=== PATIENT | male | born 2000 | race Caucasian/White ===

== ENCOUNTER 2022-04-23 19:45 | Emergency (ER) | payer BC, SELFPAY ==
[2022-04-23 19:46] VITALS: BP 133/102; PULSE 103; RESP 16; TEMP 36.8; O2SAT 98; BMI 24.3
--- NOTE | 2022-04-23 20:09 | EDS_ITS ---
HPI History of Present Illness Chief Complaint: Nausea/Vomiting Detail of Chief Complaint: Nausea and vomiting x3 days Informant: patient Narrative Narrative: Patient presents to the emergency department with complaint of vomiting and diarrhea that started 3 days ago. The vomiting has improved over time and the diarrhea was severe yesterday up to every 2 hours but he is only had 2 bouts today. Patient has had headache and started developing neck stiffness today so he got on telehealth and was referred to urgent care and urgent care referred him to the emergency department for concern for meningitis. Patient is at the [facility] and he has been around sick individuals. Initially patient thought maybe he had food poisoning. Patient has no medical history otherwise. PFSH PFSH Home Medications NK 04/23/22 [History Last Taken Unknown] Allergy/AdvReac Type Severity Reaction Status Date / Time No Known Allergies Allergy Verified 04/23/22 19:52 Surgical History (Updated 04/23/22 @ 19:53 by Nicole Llanos) H/O sinus surgery History of mandibular surgery Social History Smoking Status: Never smoker ROS ROS ED Review of Systems ROS Unobtainable: other Constitutional Constitutional ED: Reports lethargy; Denies chills, fever(s), sweats or weight loss Eyes Eyes: Denies blurry vision, change in vision or diplopia ENT ENT ED: Denies rhinorrhea or sore throat Cardiovascular Cardiovascular: Reports chest pain and racing heartbeat; Denies orthopnea Respiratory/Chest Respiratory/Chest: Reports dyspnea and dyspnea on exertion; Denies cough, orthopnea or sputum Gastrointestinal Gastrointestinal: Reports diarrhea, nausea and vomiting; Denies abdominal pain Genitourinary Genitourinary ED: Denies dysuria, hematuria or urinary frequency Musculoskeletal Musculoskeletal: Denies arthralgias, back pain, myalgias or neck pain Integumentary Denies abscess, Abrasions or rash Neurologic Neurologic: Reports headache(s); Denies weakness Psychiatric Psychiatric: Denies anxiety, depression or suicidal thoughts Endocrine Endocrinology: Denies polydipsia, polyphagia or polyuria Hematologic/Lymphatic Hematologic/Lymphatic: Denies easy bleeding, easy bruising or lymphadenopathy Allergic/Immunologic Allergic/Immunologic ED: Denies mouth swelling, tongue swelling or urticaria EXAM Physical Exam Const Vital Signs: 04/23/22 19:46 04/23/22 19:55 04/23/22 21:18 Temperature 98.2 F Temperature Source Temporal Pulse Rate 103 H 83 Respiratory Rate 16 Respiratory Effort Normal Non-Labored Respiratory Pattern Normal Blood Pressure 133/102 H 135/75 H Blood Pressure Mean 112 95 Pulse Ox 98 Oxygen Delivery Method Room Air Positive well nourished and well developed General Appearance ED: well developed and NAD HEENT Reports TM's clear and moist mucous membranes normocephalic and atraumatic; Negative for trauma or tenderness Tympanic Membrane ED: Yes TM's clear Eyes PERRL and EOMs intact bilaterally General Eye ED: Negative for pale conjunctiva or scleral icterus Neck no lymphadenopathy, supple and no JVD General: Negative for tenderness Chest Wall inspection of chest normal and palpation of chest normal Chest: Negative for tenderness Resp normal respiratory effort and clear to auscultation bilaterally Effort and Inspection: Negative for respiratory distress or pain with movement Auscultation: Negative for rhonchi, wheezes or diminished lung sounds Cardio regular rate, regular rhythm, S1 normal heart sound, S2 normal heart sound and no murmurs Peripheral Pulses: pulses 2+ throughout GI normal to inspection, nondistended, normoactive bowel sounds, soft to palpation, non-tender, non-distended and no masses Back/Spine no CVA tenderness and no thoracic nor lumbar tenderness Extremity normal to inspection General Extremety ED: Negative for edema General Extremity: Negative for edema Neuro oriented x3, CN's II-XII intact bilaterally, no sensory deficits noted and gait normal Neuro Narrative: Patient had negative Kernig's and negative Brudzinski's. There is no nuchal rigidity on exam. Sensorium / Orientation: awake, alert, oriented to person, oriented to place and oriented to time Motor Exam: strength 5/5 throughout and strength abnormal Psych mental status grossly normal Skin no rashes or lesions noted and no wounds MDM MDM MDM Narrative Medical decision making narrative: IV established arrival. Patient was given liter mostly of fluid bolus. Patient was given Toradol 30 mg IV. Patient symptomatically felt much improved and states now he can move his neck without difficulty. Patient lab work-up was essentially normal with a normal white count of 6.2 hemoglobin of 15 and no abnormalities noted in his BMP. Patient will be discharged to home. I suspect he has a viral gastroenteritis. Patient advised to use ibuprofen for discomfort. He states he has not vomited in 2 days and does not want thing for nausea. Patient advised to follow-up with primary care physician within next 3 to 5 days. Advised to return if persistent vomiting, diarrhea, dehydration, severe headache, or condition should worsen anyway. Patient is comfortable with plan. Clinically he does not have meningitis. I do not feel a spinal tap is indicated. Lab Data Attestation: I reviewed the patient's lab results. Labs: Laboratory Results - last 24 hr 04/23/22 04/23/22 20:21 20:21 WBC 6.2 RBC 4.85 Hgb 14.8 Hct 42.4 MCV 87.4 MCH 30.5 MCHC 34.9 RDW Std Deviation 37.4 RDW Coeff of Moe 11.6 Plt Count 245 MPV 8.7 Immature Gran % (Auto) 0.200 Neut % (Auto) 52.3 Lymph % (Auto) 26.8 [place] % (Auto) 19.7 H Eos % (Auto) 0.8 Baso % (Auto) 0.2 Absolute Neuts (auto) 3.3 Absolute Lymphs (auto) 1.67 Nucleated RBC % 0 Sodium 137 Potassium 3.5 Chloride 104 Carbon Dioxide 29.0 Anion Gap 4 L BUN 9 Creatinine 0.92 Estim Creat Clear Calc 146.43 Est GFR (MDRD) Af Amer 131 Est GFR (MDRD) Non-Af 109 BUN/Creatinine Ratio 9.7 L Glucose 96 Calcium 8.9 Discharge Plan Triage Chief Complaint: Nausea/Vomiting ED Provider: Santiago Herring Dx/Rx/DC Orders Clinical Impression: Viral gastroenteritis Instructions: ED Gastroenteritis, Viral (Adult) Prescriptions: No Action NK Primary Care Provider: [facility] ,Out of Referrals: Kelli Hilario MD [Med Staff - Waitstaff Captain] - 3-5 Days [facility] ,Out of [Primary Care Provider] - Disposition Disposition: Home, Self Care
[2022-04-23] MEDS: 0.9% Normal Saline 1,000 ML 1000 ML IV (20:25)
[2022-04-23] MEDS: Ketorolac 30 MG/ML Syringe IV (20:26)
[2022-04-23 20:32] LABS: Absolute Lymphocyte Count 1.67 X10^3/uL (0.83-4.51); Absolute Neutrophil Count 3.3 X10^3/uL (2.0-7.7); Basophil# 0.01 X10^3/uL; Basophil% 0.2 % (0-1); Eosinophil# 0.05 X10^3/uL; Eosinophils% 0.8 % (0-5); Hematocrit 42.4 % (40-54); Hemoglobin 14.8 g/dL (13.0-16.5); Lymphocyte # 1.67 X10^3/ul (0.83-4.51); Lymphocyte % 26.8 % (19-41); Mean Corp Hgb Conc 34.9 g/dL (32-36); Mean Corpuscular Hgb 30.5 pg (27.0-32.0); Mean Corpuscular Volume 87.4 fL (80-94); Mean Platelet Vol. 8.7 fl (6.2-12.0); Monocyte# 1.23 X10^3/uL; Monocyte% 19.7 % (0-10); NRBC Flagged by Analyzer 0 % (0-5); Neutrophil # 3.27 X10^3/uL (2.7-7.7); Neutrophil % 52.3 % (47-70); Platelet Count 245 K/mm3 (150-450); RBC Distribution Width CV 11.6 % (11.6-14.6); RBC Distribution Width SD 37.4 fl (35.1-43.9); Red Blood Count 4.85 M/mm3 (4.6-6.2); White Blood Count 6.2 K/mm3 (4.4-11.0)
[2022-04-23 20:52] LABS: Anion Gap 4 (5-15); BUN 9 mg/dL (7-18); BUN/Creat Ratio 9.7 RATIO (10-20); Calcium,Total 8.9 mg/dL (8.5-10.1); Chloride 104 mmol/L (98-107); Creatinine, Serum 0.92 mg/dL (0.70-1.30); EST Glomerular Filtration Rate 109 mL/min (>60); Est Glom Filt Rate - Afr Amer 131 mL/min (>60); Estimated Creatinine Clearance 146.43 ml/min; Glucose 96 mg/dL (74-106); Potassium 3.5 mmol/L (3.5-5.1); Sodium Level 137 mmol/L (136-145)
[2022-04-23 21:18] VITALS: BP 135/75; PULSE 83
== END 2022-04-23 21:28 | disposition home or self-care (01) ==
PROVIDERS: Emergency Provider Emergency Medicine; Visit Provider Emergency Medicine
DX: A08.4 Viral intestinal infection, unspecified (principal)
CPT/HCPCS: 80048; 85025; 87428; 96361; 96374; 99284; J7030; A4216